=== PATIENT | female | born 1975 ===

== ENCOUNTER 2020-03-03 20:21 | Emergency (ER) | payer OTHER, MEDICAID, SELFPAY ==
[2020-03-03 20:30] VITALS: BP 121/57; PULSE 63; RESP 17; TEMP 37.2; O2SAT 100
[2020-03-03 20:35] VITALS: PULSE 71; O2SAT 100
--- NOTE | 2020-03-03 21:30 | ED.GENADULT ---
HPI - General Adult General Chief complaint: Abdominal Pain Stated complaint: uretus pain Time Seen by Provider: 03/03/20 20:35 Source: patient Mode of arrival: Ambulatory Limitations: language barrier Related Data Allergies Allergy/AdvReac Type Severity Reaction Status Date / Time Penicillins Allergy Swelling Verified 03/03/20 20:56 of the Eye Patient History Social History Smoking Status: Never smoker Smoking Status: Never smoker Substance Use Type: does not use Exam Initial Vital Signs Initial Vital Signs: Vital Signs Temperature 98.9 F 03/03/20 20:30 Pulse Rate 63 03/03/20 20:30 Respiratory Rate 17 03/03/20 20:30 Blood Pressure 121/57 L 03/03/20 20:30 Pulse Oximetry 100 03/03/20 20:30 Course Vital Signs Vital signs: Vital Signs - 8 hr 03/03/20 20:30 03/03/20 20:35 Temperature 98.9 F Pulse Rate 63 71 Respiratory Rate 17 Blood Pressure 121/57 L Pulse Oximetry 100 100 Medical Decision Making Lab Data Labs: Point of Care Testing Test Results Negative Urine Dip Bedside Urine Glucose Negative Bedside Urine Bilirubin - Negative Bedside Urine Ketone - Negative Urine Specific [place] 1.015 Bedside Urine Occult Blood - Negative Bedside Urine pH 7.5 Bedside Urine Protein - Negative Bedside Urine Urobilinogen +/- 1mg Bedside Urine Nitrite - Negative Bedside Urine Leukocytes - Negative Esterase Point of care testing: Point of Care Testing Test Results Negative Urine Dip Bedside Urine Glucose Negative Bedside Urine Bilirubin - Negative Bedside Urine Ketone - Negative Urine Specific [place] 1.015 Bedside Urine Occult Blood - Negative Bedside Urine pH 7.5 Bedside Urine Protein - Negative Bedside Urine Urobilinogen +/- 1mg Bedside Urine Nitrite - Negative Bedside Urine Leukocytes - Negative Esterase
--- NOTE | 2020-03-03 21:31 | DI.US.S_ITS ---
PROCEDURE: US PELVIC COMPLETE INDICATIONS: PAIN TECHNIQUE: Real-time scanning was performed of the pelvic organs, with image documentation. Additional endovaginal scanning was necessary due to incomplete visualization of the adnexal and endometrial structures by transabdominal scanning. COMPARISON: [facility], US, US PELVIC COMPLETE WITH TRANSVAGINAL, 09/23/2018, 12:26. FINDINGS: Transabdominal scanning: A mild amount of free pelvic fluid is seen, which is considered to be within physiologic limits. Limited scanning through the kidneys shows no hydronephrosis. Endovaginal scanning: Uterus: Uterus is normal in size at 8.3 X 5.2 X 6 5 cm. The endometrium measures 13 mm in combined thickness. Hypoechoic uterine lesions are seen, which are attributed to fibroids. They measure as follows: Mid anterior uterus, intramural, 0.9 x 0.7.5 cm Mid inferior uterus, intramural, 1.9 x 1.2 x 1 cm, with hypoechoic necrotic center Ovaries: The right ovary measures 2.8 x 1.3 x 1.2 cm and demonstrates an unremarkable sonographic appearance. The left ovary measures 4.2 x 2 x 3 cm and demonstrates a complex cyst that measures up to 2.3 cm. Normal appearing arterial waveforms are confirmed to each ovary. IMPRESSION: Negative for ovarian torsion. Complex cyst in the left ovary measuring to 2.3 cm. At clinical discretion, a followup pelvic ultrasound could be considered in 6 weeks to assure resolution/ improvement. There is a hypoechoic fibroid, which may represent internal degeneration. Note: No significant discrepancy from the preliminary report. Dictated by: Willian Vasquez M.D. on 03/04/2020 at 8:17 Approved by: Willian Vasquez M.D. on 03/04/2020 at 8:23
--- NOTE | 2020-03-03 21:31 | ED_ITS ---
HPI - General Adult General Chief complaint: Abdominal Pain Stated complaint: uretus pain Time Seen by Provider: 03/03/20 20:35 Source: patient Mode of arrival: Ambulatory Limitations: language barrier History of Present Illness HPI narrative: Patient is a 44-year-old female. Pashto is 2nd language however she can not understand quite a bit of which he worsening however the translation line was used. Patient states that she has had lower abdominal pain in the past. Initially she stated that she was told she had a ?uterine cyst ?but then was later told that it was a ?ovarian cyst ?she has discharge paperwork with her from another facility from her prior visit that talks about ovarian cysts. With further questioning the patient appears that the ?uterine cyst ?is most likely uterine fibroid. 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 She has been using Tylenol for the discomfort. She states that 2 days ago she had an increase in the lower abdominal pain that did not improve with her Tylenol. No fevers. No urinary symptoms. She states she does have a uterine prolapse but this is not new for her. No constipation or diarrhea. Related Data Allergies Allergy/AdvReac Type Severity Reaction Status Date / Time Penicillins Allergy Swelling Verified 03/03/20 20:56 of the Eye Review of Systems Constitutional Constitutional: Denies fever(s) Cardiovascular Cardiovascular: Denies chest pain and Denies dyspnea Respiratory Respiratory: Denies dyspnea Gastrointestinal Gastrointestinal: Reports abdominal pain, Denies change in bowel habits, Denies nausea and Denies vomiting Genitourinary Genitourinary: Denies dysuria Genitourinary: Denies dysuria and Denies vaginal discharge Musculoskeletal Musculoskeletal: Denies back pain Integumentary/Breasts Skin/Breast: Denies lesions and Denies rash Neurologic Neurologic: Denies behavioral changes Psychiatric Psychiatric: Denies behavioral changes Hematologic/Lymphatic Hematologic/Lymphatic: Denies easy bleeding and Denies easy bruising Patient History Medical History Ovarian cyst Social History Smoking Status: Never smoker Smoking Status: Never smoker Substance Use Type: does not use Exam Initial Vital Signs Initial Vital Signs: Vital Signs Temperature 98.9 F 03/03/20 20:30 Pulse Rate 63 03/03/20 20:30 Respiratory Rate 17 03/03/20 20:30 Blood Pressure 121/57 L 03/03/20 20:30 Pulse Oximetry 100 03/03/20 20:30 Const General: cooperative and comfortable Limitations: mental status not altered HENMT Head: normal to inspection and normocephalic Resp Effort & Inspection: normal respiratory effort Cardio Rate: regular rate GI Inspection: non-distended Palpation: soft and tender (Bilateral lower abdomen) Skin Lesions: no lesions Rashes: no rashes Neuro General: patient alert and patient awake Cognition: normal cognition Speech: speech normal Extrem General: capillary refill normal Psych Appearance: grossly normal and well kempt Course Orders Ordered: ED Orders 03/03/20 21:31 US pelvic complete Stat Discontinued Medications Ketorolac Tromethamine (Ketorolac 60 Mg/2 Ml Vial) 30 mg IV NOW ONE Stop: 03/03/20 23:15 Last Admin: 03/03/20 23:44 Dose: Not Given Documented by: MANOJ Ketorolac Tromethamine (Ketorolac 60 Mg/2 Ml Vial) 30 mg IM NOW ONE Stop: 03/03/20 23:21 Last Admin: 03/03/20 23:28 Dose: 30 mg Documented by: SIENNA Tramadol HCl (Tramadol 50 Mg Prepack) 1 bottle MISC SEEINSTR ONE Stop: 03/03/20 23:54 Last Admin: 03/04/20 00:02 Dose: 1 bottle Documented by: MANOJ Vital Signs Vital signs: Vital Signs - 8 hr 03/03/20 20:30 03/03/20 20:35 03/03/20 23:14 Temperature 98.9 F Pulse Rate 63 71 53 L Respiratory Rate 17 16 Blood Pressure 121/57 L 96/50 L Pulse Oximetry 100 100 98 Medical Decision Making Lab Data Labs: Point of Care Testing Test Results Negative Urine Dip Bedside Urine Glucose Negative Bedside Urine Bilirubin - Negative Bedside Urine Ketone - Negative Urine Specific [place] 1.015 Bedside Urine Occult Blood - Negative Bedside Urine pH 7.5 Bedside Urine Protein - Negative Bedside Urine Urobilinogen +/- 1mg Bedside Urine Nitrite - Negative Bedside Urine Leukocytes - Negative Esterase Point of care testing: Point of Care Testing Test Results Negative Urine Dip Bedside Urine Glucose Negative Bedside Urine Bilirubin - Negative Bedside Urine Ketone - Negative Urine Specific [place] 1.015 Bedside Urine Occult Blood - Negative Bedside Urine pH 7.5 Bedside Urine Protein - Negative Bedside Urine Urobilinogen +/- 1mg Bedside Urine Nitrite - Negative Bedside Urine Leukocytes - Negative Esterase Imaging Data US - [employer]: Radiologist's Impression: Fibroid uterus with dominant fibroid possibly undergoing degeneration. Left ovarian corpus luteum cyst MDM Narrative Medical decision making narrative: Patient's ultrasound today shows findings that are consistent with with the patient already knows. Has a left-sided ovarian cyst and a uterine fibroid. She does have a benign abdominal exam. Her urinalysis is unremarkable. She has a follow-up with assault amphibious vehicle officer the middle next week. There is no indication for emergent gynecologic evaluation here in the ER. She is afebrile. Will give her medications for breakthrough pain however she was instructed to keep all of her scheduled medical appointments. She was given return precautions. She did expressed understanding and agreement. Discharge Plan Departure Patient Disposition: Home Clinical Impression: Uterine fibroid Qualifiers: Uterine leiomyoma location: unspecified location Qualified Code(s): D25.9 - Leiomyoma of uterus, unspecified Ovarian cyst Qualifiers: Laterality: left Qualified Code(s): N83.202 - Unspecified ovarian cyst, left side Instructions: DI for Uterine Fibroids, DI for Ovarian Cyst Activity Restrictions/Additional Instructions: Take all of your medications as directed. Keep all of your scheduled medical appointments. Return to the emergency department for any new or worsening symptoms
[2020-03-03 23:14] VITALS: BP 96/50; PULSE 53; RESP 16; O2SAT 98
[2020-03-03] MEDS: KETOROLAC 60 MG/2 ML VIAL 30 MG IM (23:28)
[2020-03-04] MEDS: TRAMADOL 50 MG PREPACK 1 BOTTLE MISC (00:02)
== END 2020-03-04 00:04 | disposition home or self-care (01) ==
PROVIDERS: Emergency Provider Emergency Medicine
DX: D25.9 Leiomyoma of uterus, unspecified (principal); N83.202 Unspecified ovarian cyst, left side
CPT/HCPCS: 76856; 81003; 81025; 96372; 99283; J1885